=== PATIENT | male | born 2000 | race Caucasian/White ===

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

== ENCOUNTER 2022-05-27 14:49 | Emergency (ER) | payer OTHER ==
[~2022-05-27] VITALS: Ht 182.9 cm; Wt 83.9 kg
[~2022-05-27 14:49] MED LIST changes: +AMOCLA875 PO; +Norco 5-325 Ta1 EACH PO
[2022-05-27 15:41] LABS: BASOPHILS ABSOLUTE AUTO 0.07 K/mm3 (0.00-0.23); BASOPHILS PERCENT AUTO 1 % (0-2); EOSINOPHILS ABSOLUTE AUTO 0.04 K/mm3 (0.00-0.68); EOSINOPHILS PERCENT AUTO 1 % (0-6); Hematocrit 42.5 % (37.0-53.0); Hemoglobin 14.5 g/dL (13.5-17.5); IMMATURE GRAN PERCENT AUTO 0 % (0-1); LYMPHOCYTES ABSOLUTE AUTO 1.97 K/mm3 (0.84-5.20); LYMPHOCYTES PERCENT AUTO 32 % (21-46); MONOCYTES ABSOLUTE AUTO 0.48 K/mm3 (0.16-1.47); MONOCYTES PERCENT AUTO 8 % (4-13); Mean Corpuscular HGB 29.1 pg (26.0-34.0); Mean Corpuscular HGB Conc 34.1 g/dL (31.5-36.5); Mean Corpuscular Volume 85 fL (80-100); Mean Platelet Volume 9.6 fL (9.1-12.4); NEUTROPHILS ABSOLUTE AUTO 3.57 K/mm3 (1.96-9.15); NEUTROPHILS PERCENT AUTO 58 % (41-73); Platelet Count 219 K/mm3 (150-400); RDW Coefficient Variation 13.1 % (11.7-14.2); RDW Standard Deviation 40.9 fL (35.1-46.3); Red Blood Cell Count 4.99 M/mm3 (4.30-5.90); White Blood Cell Count 6.13 K/mm3 (4.00-11.30)
[2022-05-27 15:50] LABS: Albumin, Blood 3.9 g/dL (3.4-5.0); Albumin/Globulin Ratio 1.1 (0.8-1.8); Bilirubin, Total 0.5 mg/dL (0.1-1.0); Bun/Creatinine Ratio 14.3 (12.0-20.0); Calcium, Blood 9.3 mg/dL (8.5-10.1); Creatinine, Blood 0.91 mg/dL (0.60-1.20); Globulin, Blood 3.4 g/dL (2.2-4.0); Potassium, Blood 3.9 mmol/L (3.5-5.5); Total Protein, Blood 7.3 g/dL (6.4-8.2)
[2022-05-27] MEDS ORDERED: LIDO700A20 TOP (18:15)
== END 2022-05-27 18:28 | disposition home or self-care (01) ==
LOC: ER 14:49
PROVIDERS: Physician Assistant
DX: R10.12 Left upper quadrant pain (principal); F17.290 Nicotine dependence, other tobacco product, uncomplicated
CPT/HCPCS: 36415; 71046; 80053; 83690; 85025; J1885

== ENCOUNTER 2022-12-18 19:17 | Emergency (ER) | payer OTHER ==
[~2022-12-18] VITALS: Ht 182.9 cm; Wt 79.4 kg
[~2022-12-18 19:17] MED LIST changes: +LIDO700A20 TOP
[2022-12-18 19:26] VITALS: BP 160/74
== END 2022-12-18 21:11 | disposition home or self-care (01) ==
LOC: ER 19:17
DX: K91.840 Postprocedural hemorrhage of a digestive system organ or structure following a digestive system procedure (principal); Y83.8 Other surgical procedures as the cause of abnormal reaction of the patient, or of later complication, without mention of misadventure at the time of the procedure
CPT/HCPCS: 99282

== ENCOUNTER 2022-12-19 21:46 | Emergency (ER) | payer OTHER ==
[~2022-12-19] VITALS: Ht 182.9 cm; Wt 79.4 kg
[2022-12-19 21:59] VITALS: BP 150/87
[2022-12-19 23:55] LABS: BASOPHILS ABSOLUTE AUTO 0.07 K/mm3 (0.00-0.23); BASOPHILS PERCENT AUTO 1 % (0-2); EOSINOPHILS ABSOLUTE AUTO 0.08 K/mm3 (0.00-0.68); EOSINOPHILS PERCENT AUTO 1 % (0-6); Hematocrit 40.5 % (37.0-53.0); Hemoglobin 13.8 g/dL (13.5-17.5); IMMATURE GRAN ABSOLUTE AUTO 0.01 K/mm3 (0.00-0.10); IMMATURE GRAN PERCENT AUTO 0 % (0-1); LYMPHOCYTES ABSOLUTE AUTO 2.13 K/mm3 (0.84-5.20); LYMPHOCYTES PERCENT AUTO 32 % (21-46); MONOCYTES ABSOLUTE AUTO 0.54 K/mm3 (0.16-1.47); MONOCYTES PERCENT AUTO 8 % (4-13); Mean Corpuscular HGB 29.1 pg (26.0-34.0); Mean Corpuscular HGB Conc 34.1 g/dL (31.5-36.5); Mean Corpuscular Volume 85 fL (80-100); Mean Platelet Volume 9.5 fL (9.1-12.4); NEUTROPHILS ABSOLUTE AUTO 3.92 K/mm3 (1.96-9.15); NEUTROPHILS PERCENT AUTO 58 % (41-73); Platelet Count 213 K/mm3 (150-400); RDW Coefficient Variation 12.8 % (11.7-14.2); RDW Standard Deviation 39.7 fL (35.1-46.3); Red Blood Cell Count 4.74 M/mm3 (4.30-5.90); White Blood Cell Count 6.75 K/mm3 (4.00-11.30)
== END 2022-12-20 00:56 | disposition home or self-care (01) ==
LOC: ER 21:46
PROVIDERS: Emergency Medicine
DX: K91.840 Postprocedural hemorrhage of a digestive system organ or structure following a digestive system procedure (principal)
CPT/HCPCS: 85025; 99283

== ENCOUNTER 2024-02-06 12:59 | Day surgery (SDC) | payer OTHER ==
[~2024-02-06] VITALS: Ht 185.4 cm; Wt 79.0 kg
[~2024-02-06 12:59] MED LIST changes: +Lactated Ringer's 1,000 ML IV ONE; +Monodox100 MG PO
[2024-02-06] MEDS ORDERED: CeFAZolin Sodium 2,000 MG VIAL ONE (13:23)
[2024-02-06] MEDS ORDERED: propofoL 20 ML IV ONE (13:23)
[2024-02-06] MEDS ORDERED: NS 50 ML IV ONE (13:23)
[2024-02-06] MEDS ORDERED: FentaNYL Citrate 50 MCG/ML 2 ML Injection ONE (13:24)
[2024-02-06] MEDS ORDERED: Midazolam HCl 1MG / ML 2ML Vial ONE (13:24)
[2024-02-06] MEDS ORDERED: Dexmedetomidine HCL 200 MCG / 2 ML ONE (13:35)
[2024-02-06] MEDS ORDERED: Lactated Ringer's 1,000 ML IV ONE (13:49)
[2024-02-06] MEDS ORDERED: Phenylephrine HCl 100 MCG/ML-NS 10MLSYR (1MG/10ML) ONE (14:17)
[2024-02-06] MEDS ORDERED: Dexamethasone Sod Phos 10 MG/ML 1ML VIAL ONE (15:00)
[2024-02-06] MEDS ORDERED: Ondansetron HCl 2 MG / ML 2ML Vial ONE (15:00)
[2024-02-06 15:16] VITALS: BP 133/67
--- NOTE | 2024-02-06 16:22 | NUR ---
02/06/24 1622 [facility] USED FOR PAIN ASSESSMENT, PER VO FROM JEMIMA MUNIZ.
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
== END 2024-02-06 16:05 | disposition home or self-care (01) ==
LOC: ORSCSDS 12:59
PROVIDERS: Orthopaedic Surgery
PROC: 0PSR34Z Reposition Right Thumb Phalanx with Internal Fixation Device, Percutaneous Approach (ICD-10-PCS; principal; 2024-02-06 14:00)
DX: S62.521A Displaced fracture of distal phalanx of right thumb, initial encounter for closed fracture (principal); F41.8 Other specified anxiety disorders; Z79.899 Other long term (current) drug therapy; F17.290 Nicotine dependence, other tobacco product, uncomplicated
CPT/HCPCS: J0690; J1100; J2250; J2371; J2405; J2704; J3010; J7120